=== PATIENT | male | born 1985 | race Caucasian/White ===

== ENCOUNTER 2023-06-12 23:46 | Emergency (ER) | payer BC | END 2023-06-13 01:03 | disposition home or self-care (01) | LOC: ER 23:48 | DX: F19.90 Other psychoactive substance use, unspecified, uncomplicated (principal); Z53.21 Procedure and treatment not carried out due to patient leaving prior to being seen by health care provider ==

== ENCOUNTER 2023-06-15 18:53 | Emergency (ER) | payer BC ==
[~2023-06-15] VITALS: Ht 177.8 cm; Wt 69.4 kg
[2023-06-15 19:14] VITALS: BP 138/89; TEMP 97.8; O2SAT 95
== END 2023-06-15 19:38 | disposition left against medical advice (07) ==
LOC: ER 18:58
DX: R06.02 Shortness of breath (principal); Z53.21 Procedure and treatment not carried out due to patient leaving prior to being seen by health care provider